=== PATIENT | female | born 1975 | race Two or more races ===

== ENCOUNTER 2025-08-30 12:41 | Emergency (ER) | payer MEDICAID, OTHER ==
[~2025-08-30] VITALS: Ht 157.5 cm; Wt 92.8 kg
[2025-08-30 12:44] VITALS: BP 126/70; PULSE 63; RESP 16; TEMP 98.2; O2SAT 95
--- NOTE | 2025-08-30 13:56 | DVH ---
EXAM: XY R FOOT 3 VIEW XRAY HISTORY: R/o fracture COMPARISON: None TECHNIQUE: Three views of the right foot were performed. FINDINGS/IMPRESSION: 1. Acute appearing fracture of the right 2nd toe distal phalanx. There also appears to be some bone l oss about the distal phalanx. Correlate for signs and symptoms of osteomyelitis. 2. No other fractures are identified about the right foot. 3. 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
[2025-08-30] MEDS ORDERED: NAPR-746 PO (14:23)
--- NOTE | 2025-08-30 14:23 | ED.PDOC ---
Musculoskeletal HPI Comments righ Chief Complaint: Lower Extremity Time Seen by MD: 12:57 Allergies: Coded Allergies: NO KNOWN ALLERGIES (Unverified , 08/30/25) Home Meds Active Scripts Naproxen (Naproxen) 500 Mg Tab, 500 MG PO BIDWM for 10 Days, #20 TAB 0 Refills Prov:EMANI SIERRA NP 08/30/25 Mode of Arrival: Ambulatory X-Ray, Labs, Meds, VS Vital Signs Date Time Temp Pulse Resp B/P (MAP) Pulse Ox O2 Delivery O2 Flow Rate FiO2 08/30/25 12:44 98.2 63 16 126/70 95 98.2 Departure 1 Departure Time of Disposition: 14:22 Impression: Primary Impression: Phalanx fracture, foot Qualified Codes: S92.534B - Nondisplaced fracture of distal phalanx of right lesser toe(s), initial encounter for open fracture Disposition: 01 HOME / SELF CARE / HOMELESS Condition: Stable e-Prescriptions Naproxen (Naproxen) 500 Mg Tab 500 MG PO BIDWM for 10 Days, #20 TAB 0 Refills Prov: EMANI SIERRA NP 08/30/25 Discharged With: Self I personally scribed for EMANI SIERRA NP ([email or web address]) on 08/30/25 at 14:34. Electronically submitted by Mariaelena BAKER). EMANI SIERRA NP Aug 30, 2025 14:23
--- NOTE | 2025-08-30 14:26 | ED.PDOC ---
Musculoskeletal HPI Comments 50-year-old female that presents to the ED Pt completely of lower extremity pain. Patient states on Saturday she dropped a baking dish on her right foot 2nd toe. Patient states since she has noted redness and swelling with a associated tingling. Patient otherwise since has been able to ambulate. Patient otherwise denies any other symptoms. 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 Hx Family History Family History: Reviewed,noncontributory to illness Social History Smoker: Non-Smoker Alcohol: Denies ETOH Use Drugs: Denies Drug Use Lives In: Home Constitutional: denies: chills, diaphoresis, fatigue, fever, malaise, sweats, weakness, others EENTM: denies: blurred vision, double vision, ear bleeding, ear discharge, ear drainage, ear pain, ear ringing, eye pain, eye redness, hearing loss, mouth pain, mouth swelling, nasal discharge, nose bleeding, nose congestion, nose pain, photophobia, tearing, throat pain, throat swelling, voice changes, others Respiratory: denies: cough, hemoptysis, orthopnea, SOB at rest, shortness of breath, SOB with excertion, stridor, wheezing, others Cardiovascular: denies: chest pain, dizzy spells, diaphoresis, Dyspnea on exertion, edema, irregular heart beat, left arm pain, lightheadedness, palpitations, PND, syncope, others Gastrointestinal: denies: abdomen distended, abdominal pain, blood streaked bowels, constipated, diarrhea, dysphagia, difficulty swallowing, hematemesis, melena, nausea, poor appetite, poor fluid intake, rectal bleeding, rectal pain, vomiting, others Genitourinary: denies: abnormal vagina bleeding, burning, dyspareunia, dysuria, flank pain, frequency, hematuria, incontinence, pain, , vagina discharge, urgency, others Neurological: denies: dizziness, fainting, headache, left sided numbness, left sided weakness, numbness, paresthesia, pre-existing deficit, right sided numbness, right sided weakness, seizure, speech problems, tingling, tremors, weakness, others Musculoskeletal: denies: back pain, gout, joint pain, joint swelling, muscle pain, muscle stiffness, neck pain, others Integumetry: reports: bruises (Right foot 2nd toe); denies: change in color, change in hair/nails, dryness, laceration, lesions, lumps, rash, wounds, others Allergic/Immunocompromised: denies: Difficulty Healing, Frequent Infections, Hives, Itching, others Hematologic/Lymphatic: denies: anemia, blood clots, easy bleeding, easy bruising, swollen glands, others Endocrine: denies: excessive hunger, excessive sweating, excessive thirst, excessive urination, flushing, intolerance to cold, intolerance to heat, unexplained weight gain, unexplained weight loss, others Psychiatric: denies: anxiety, bipolar disorder, depression, hopeless, panic disorder, schizophrenia, sleepless, suicidal, others All Other Systems: Reviewed and Negative Physical Exam Exam Comments contussion to affected phalange. full rom. neurosensation intact General Appearance: No Apparent Distress, Normal HEENT: Normal ENT Inspection, Pharynx Normal, TMs Normal Neck: Full Range of Motion, Non-Tender, Normal, Normal Inspection Respiratory: Chest Non-Tender, Lungs Clear, No Accessory Muscle Use, No Respiratory Distress, Normal Breath Sounds Cardiovascular: No Edema, No JVD, No Murmur, No Gallop, Normal Peripheral Pulses, Regular Rate/Rhythm Breast Exam: Deferred Gastrointestinal: No Organomegaly, Non Tender, No Pulsatile Mass, Normal Bowel Sounds, Soft Genitalia: Deferred Pelvic: Deferred Rectal: Deferred Extremities: No calf tenderness, Normal capillary refill, Normal inspection, Normal range of motion, Non-tender, No pedal edema Musculoskeletal : Apperance: Normal Neurologic: Alert, medical assisting instructor II-XII nml as Tested, No Motor Deficits, Normal Affect, Normal Mood, No Sensory Deficits Cerebellar Function: Normal Reflexes: Normal Skin: Dry, Normal Color, Warm Lymphatic: No Adenopathy Was a procedure done? Was a procedure done?: No Differential Diagnosis EXT Differential Diagnosis: Fracture, Sprain, Contusion, Rheumatoid, Arthritis X-Ray, Labs, Meds, VS Vital Signs Date Time Temp Pulse Resp B/P (MAP) Pulse Ox O2 Delivery O2 Flow Rate FiO2 08/30/25 12:44 98.2 63 16 126/70 95 98.2 [facility] [id number] [facility] [address] Ph: [phone] DIAGNOSTIC IMAGING Diagnostic Imaging Report : [id number] Signed PATIENT: MERRILL GOODENACCT: [id number] UNIT: [id number] : 1975 LOC: ER ROOM / BED: / AGE / SEX: 50 / F ADM STATUS: REG ER SERVICE 1329 ORDERING PHYSICIAN: EMANI SIERRA NP PROCEDURE(s): RFOOT - R FOOT 3 VIEW XRAY REASON: R/o fracture ORDER NUMBER(s): [id number], ACCESSION NUMBER(s): [id number] EXAM: XY R FOOT 3 VIEW XRAY HISTORY: R/o fracture COMPARISON: None TECHNIQUE: Three views of the right foot were performed. FINDINGS/IMPRESSION: 1. Acute appearing fracture of the right 2nd toe distal phalanx. There also appears to be some bone loss about the distal phalanx. Correlate for signs and symptoms of osteomyelitis. 2. No other fractures are identified about the right foot. 3. 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 ATED BY: RAJAN LOWE MD DICTATED DATE/TIME: 08/30/25 1352 SIGNED BY: RAJAN LOWE MD SIGNED DATE/TIME: 08/30/25 1356 CC: X-Ray, Labs, Meds, VS Comment Patient arrives alert and oriented, ABC's intact, afebrile, vital signs stable, saturating well in room air Diagnostic imaging ordered by me and results interpreted by radiology : PROCEDURE(s): RFOOT - R FOOT 3 VIEW XRAY FINDINGS/IMPRESSION: 1. Acute appearing fracture of the right 2nd toe distal phalanx. There also appears to be some bone loss about the distal phalanx. Correlate for signs and symptoms of osteomyelitis. 2. No other fractures are identified about the right foot. 3. 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 Additional MDM Review of External, Non-ED records: External records reviewed. Discussion with independent historian (EMS, family) history obtained from the patient/parents (if applicable) at bedside Chronic conditions affecting care: None Social determinants of health affecting care: None Consideration of admission (observation or admission): I considered escalation of care to admission for this patient, however given the reassuring workup, the patient is safe for outpatient management. Discussion with the Radiology: No Tests considered but not performed: Prescription medication considered but not given: 12 lead EKG interpretation: Time of 1ST Reevaluation: 15:00 Reevaluation 1ST: Unchanged Patient Education/Counseling: Diagnosis, Treatment Family Education/Counseling: No Family Present Departure 1 Departure Time of Disposition: 14:55 Impression: Primary Impression: Phalanx fracture, foot Qualified Codes: S92.534B - Nondisplaced fracture of distal phalanx of right lesser toe(s), initial encounter for open fracture Disposition: 01 HOME / SELF CARE / HOMELESS Condition: Stable e-Prescriptions Naproxen (Naproxen) 500 Mg Tab 500 MG PO BIDWM for 10 Days, #20 TAB 0 Refills Prov: EMANI SIERRA NP 08/30/25 Critical Care Note Critical Care Time?: No Stability Stability form required: No Heart Score Heart Score: Heart Score Response (Comments) Value History N/A 0 EKG N/A 0 Age N/A 0 Risk Factors N/A 0 Troponin N/A 0 Total 0 I personally scribed for EMANI SIERRA NP ([email or web address]) on 08/30/25 at 14:26. Electronically submitted by Mariaelena BAKER). EMANI SIERRA NP Aug 30, 2025 14:26
== END 2025-08-30 14:54 | disposition home or self-care (01) ==
LOC: ER 12:41
DX: S92.534A Nondisplaced fracture of distal phalanx of right lesser toe(s), initial encounter for closed fracture (principal); Z79.899 Other long term (current) drug therapy; W20.8XXA Other cause of strike by thrown, projected or falling object, initial encounter; Y93.89 Activity, other specified; Y92.89 Other specified places as the place of occurrence of the external cause; Y99.8 Other external cause status
CPT/HCPCS: 73630